=== PATIENT | female | born 1965 | race Caucasian/White ===

== ENCOUNTER → 2018-06-07 | Outpatient (CLI) | payer OTHER ==
--- NOTE | 2018-06-07 12:44 | CT ---
EXAMINATION TYPE: CT lumbar spine wo con DATE OF EXAM: 06/07/2018 COMPARISON: None HISTORY: Lumbago CT DLP: 2222.[address] of the lumbar spine was performed. Bone and soft tissue window settings are submitted as well as coronal and sagittal reconstructions. L1-L2: Normal disc space height. No disc herniation protrusion or central stenosis. No facet joint arthropathy. No evidence for foraminal encroachment. L2-L3: Normal disc space height. No disc herniation protrusion or central stenosis. No facet joint arthropathy. No evidence for foraminal encroachment. L3-L4: Normal disc space height. No disc herniation protrusion or central stenosis. No facet joint arthropathy. No evidence for foraminal encroachment. L4-L5: Moderate degenerative disc space narrowing. Circumferential disc bulge greatest posteriorly wi th partial encapsulating spur resulting in disc endplate complex. There is bilateral lateral recess s tenosis identified as well as mild bilateral foraminal encroachment. No definite central stenosis at this time. L5-S1: Severe disc space narrowing noted with vacuum disc. Circumferential disc bulge with partial en capsulating spur resulting in moderate sized disc endplate complex. Bilateral lateral recess stenosis and mild central stenosis appreciated. Bilateral foraminal encroachment noted with facet joint arthr opathy. No paraspinal masses are identified. Lumbar segments are free of fracture. IMPRESSION: 1. Degenerative disc disease at L4-5 and L5-S1 with disc endplate complex and lateral recess stenosis . Mild central stenosis at L5-S1 as discussed.
== END | disposition home or self-care (01) ==
LOC: RADCTMAIN 08:19
PROVIDERS: ATTEND Psychiatry & Neurology Neurology
DX: M48.07 Spinal stenosis, lumbosacral region (principal); M51.37 Other intervertebral disc degeneration, lumbosacral region
CPT/HCPCS: 72131

== ENCOUNTER → 2018-10-25 | Outpatient (CLI) | payer MEDICARE, OTHER ==
[2018-10-25 16:11] LABS: African American GFR (CKD) >90 (>60 ml/min/1.73 sqM); Blood Urea Nitrogen 10 mg/dL (7-17)
--- NOTE | 2018-10-25 20:38 | CT ---
EXAMINATION TYPE: CT brain wo/w con DATE OF EXAM: 10/25/2018 COMPARISON: None. HISTORY: Body tremors and memory loss CT DLP: 2117.3 mGycm Automated exposure control for dose reduction was used. CONTRAST: CT scan of the head is performed without and with IV Contrast, patient injected with 100 mL of Isovue 300. FINDINGS: Noncontrast images show no acute cranial hemorrhage or midline shift. The ventricles and sulci are w ithin normal limits in size for patient's age. Postcontrast images show no suspicious enhancing mass . There may be small arachnoid cyst or adjacent cysts in the posterior aspect posterior fossa or freddy cisterna magna. The globes are intact and the visualized sinuses are clear. IMPRESSION: Possible small posterior aspect posterior fossa arachnoid cysts or freddy cisterna magna ot herwise unremarkable study.
== END | disposition home or self-care (01) ==
LOC: RADCTMAIN 15:37
PROVIDERS: ATTEND Psychiatry & Neurology Neurology
DX: R25.1 Tremor, unspecified (principal); Z51.81 Encounter for therapeutic drug level monitoring
CPT/HCPCS: 82565; 84520; 70470; 36415; Q9967

== ENCOUNTER 2019-02-26 11:33 | Emergency (ER) | payer MEDICARE ==
[2019-02-26 11:47] VITALS: TEMP 98.1
[2019-02-26] MEDS ORDERED: ONDANSETRON 4 MG/2 ML VIAL IVP STA (12:06)
[2019-02-26 12:19] VITALS: RESP 20
--- NOTE | 2019-02-26 12:28 | ED ---
Seizure HPI - General Chief Complaint: Seizure Stated Complaint: seizures Time Seen by Provider: 02/26/19 11:54 Source: patient, family Mode of arrival: wheelchair Limitations: no limitations - History of Present Illness Initial Comments: Patient is a 53-year-old female, with multiple comorbidities, presenting to emergency Department with complaints of a seizure. Patient states she does have history of seizures and currently sees Dr. Massey for these. She did have a 72 hour EEG test performed last week and she is awaiting results. Patient states she has had 4, approximate 10 minute seizures since yesterday. Patient describes the seizures as beginning with tremors of her hand progressing to her arm and into her legs. Patient states each one lasts approximately 10 minutes or so. Patient states she even was starting to have one in the ER waiting room. Patient denies recent fever, chills, abdominal pain, chest pain, shortness of breath. Patient does admit to recent CT of the head which reveals a very small cyst that they will reexamine in one year. Patient does admit to mild nausea, no vomiting, no abdominal pain, no urinary complaints. Patient has no other complaints at this time. Upon arrival to the ER, her vital signs are stable. Patient was seen shaking her hand in triage but she was able to ambulate from wheelchair to bed without complications. - Related Data Allergies Allergy/AdvReac Type Severity Reaction Status Date / Time No Known Allergies Allergy Verified 02/26/19 11:42 Review of Systems ROS Statement: Those systems with pertinent positive or pertinent negative responses have been documented in the HPI. ROS Other: All systems not noted in ROS Statement are negative. Past Medical History Past Medical History: Diabetes Mellitus, Hyperlipidemia, Hypertension History of Any Multi-Drug Resistant Organisms: None Reported Past Surgical History: Appendectomy, Back Surgery, Hysterectomy Past Psychological History: No Psychological Hx Reported Smoking Status: Never smoker Past Alcohol Use History: None Reported Past Drug Use History: None Reported General Exam - General Exam Comments Initial Comments: GENERAL: Well-appearing, well-nourished and in no acute distress. HEAD: Atraumatic, normocephalic. EYES: Pupils equal round and reactive to light, extraocular movements intact, sclera anicteric, conjunctiva are normal. ENT: TMs normal, nares patent, oropharynx clear without exudates. Moist mucous membranes. NECK: Normal range of motion, supple without lymphadenopathy or JVD. LUNGS: Breath sounds clear to auscultation bilaterally and equal. No wheezes rales or rhonchi. HEART: Regular rate and rhythm without murmurs, rubs or gallops. ABDOMEN: Soft, nontender, normoactive bowel sounds. No guarding, no rebound. No masses appreciated. : Deferred EXTREMITIES: Normal range of motion, no pitting or edema. No clubbing or cyanosis. NEUROLOGICAL: Cranial nerves II through XII grossly intact. Normal speech, normal gait. PSYCH: Normal mood, normal affect. SKIN: Warm, Dry, normal turgor, no rashes or lesions noted. Limitations: no limitations Course Vital Signs 02/26/19 02/26/19 02/26/19 11:42 11:46 12:46 Temperature 98.1 F Pulse Rate 86 82 Respiratory 16 20 20 Rate Blood Pressure 133/73 125/85 O2 Sat by Pulse 98 Oximetry 02/26/19 02/26/19 02/26/19 13:00 14:00 14:40 Temperature Pulse Rate 87 85 83 Respiratory 20 20 20 Rate Blood Pressure 127/88 119/51 120/78 O2 Sat by Pulse 95 Oximetry Medical Decision Making - Medical Decision Making Patient is a 53-year-old female presenting with seizures today. Patient has history of seizures and currently sees Dr. Massey. She had a recent 72 hour EEG and she is awaiting the results. Vital signs are stable during stay. Lab work shows no acute abnormalities. UA is negative. I discussed these findings with the patient and her . During ER stay, patient had seizure-like activity. She was seen having tremors of her hand and legs. When I moved her right arm she was voluntarily moving her arm back in place. Patient was given a 1 of Ativan which did improve her symptoms. I feel like her symptoms are voluntarily. Patient is stable for discharge at this time. She'll follow back up with her neurologist. Return parameters were discussed with the patient and her and they both verbalized understanding. Case discussed with Dr. Ghotra. - Lab Data Result diagrams: 02/26/19 12:02/26/19 12:02 Lab Results 02/26/19 02/26/19 02/26/19 Range/Units 12:02 12: 12: WBC 6.7 (3.8-10.6) k/uL RBC 4.43 (3.80-5.40) m/uL Hgb 13.5 (11.4-16.0) gm/dL Hct 41.7 (34.0-46.0) % MCV 94.1 (80.0-100.0) fL MCH 30.5 (25.0-35.0) pg MCHC 32.5 (31.0-37.0) g/dL RDW 13.8 (11.5-15.5) % Plt Count 186 (150-450) k/uL Neutrophils % 73 % Lymphocytes % 17 % Monocytes % 6 % Eosinophils % 3 % Basophils % 0 % Neutrophils # 4.9 (1.3-7.7) k/uL Lymphocytes # 1.1 (1.0-4.8) k/uL Monocytes # 0.4 (0-1.0) k/uL Eosinophils # 0.2 (0-0.7) k/uL Basophils # 0.0 (0-0.2) k/uL PT 9.5 (9.0-12.0) sec INR 0.9 (<1.2) APTT 23.2 (22.0-30.0) sec Sodium 140 (137-145) mmol/L Potassium 4.9 (3.5-5.1) mmol/L Chloride 106 (98-107) mmol/L Carbon Dioxide 24 (22-30) mmol/L Anion Gap 10 mmol/L BUN 18 H (7-17) mg/dL Creatinine 0.76 (0.52-1.04) mg/dL Est GFR (CKD-EPI)AfAm >90 (>60 ml/min/1.73 sqM) Est GFR (CKD-EPI)NonAf 90 (>60 ml/min/1.73 sqM) Glucose 124 H (74-99) mg/dL Calcium 9.9 (8.4-10.2) mg/dL Total Bilirubin 1.0 (0.2-1.3) mg/dL AST 25 (14-36) U/L ALT 13 (4-34) U/L Alkaline Phosphatase 66 (38-126) U/L Total Protein 7.3 (6.3-8.2) g/dL Albumin 4.4 (3.5-5.0) g/dL Urine Color Urine Appearance (Clear) Urine pH (5.0-8.0) Ur Specific [place] (1.001-1.035) Urine Protein (Negative) Urine Glucose (UA) (Negative) Urine Ketones (Negative) Urine Blood (Negative) Urine Nitrite (Negative) Urine Bilirubin (Negative) Urine Urobilinogen (<2.0) mg/dL Ur Leukocyte Esterase (Negative) 02/26/19 Range/Units 13:05 WBC (3.8-10.6) k/uL RBC (3.80-5.40) m/uL Hgb (11.4-16.0) gm/dL Hct (34.0-46.0) % MCV (80.0-100.0) fL MCH (25.0-35.0) pg MCHC (31.0-37.0) g/dL RDW (11.5-15.5) % Plt Count (150-450) k/uL Neutrophils % % Lymphocytes % % Monocytes % % Eosinophils % % Basophils % % Neutrophils # (1.3-7.7) k/uL Lymphocytes # (1.0-4.8) k/uL Monocytes # (0-1.0) k/uL Eosinophils # (0-0.7) k/uL Basophils # (0-0.2) k/uL PT (9.0-12.0) sec INR (<1.2) APTT (22.0-30.0) sec Sodium (137-145) mmol/L Potassium (3.5-5.1) mmol/L Chloride (98-107) mmol/L Carbon Dioxide (22-30) mmol/L Anion Gap mmol/L BUN (7-17) mg/dL Creatinine (0.52-1.04) mg/dL Est GFR (CKD-EPI)AfAm (>60 ml/min/1.73 sqM) Est GFR (CKD-EPI)NonAf (>60 ml/min/1.73 sqM) Glucose (74-99) mg/dL Calcium (8.4-10.2) mg/dL Total Bilirubin (0.2-1.3) mg/dL AST (14-36) U/L ALT (4-34) U/L Alkaline Phosphatase (38-126) U/L Total Protein (6.3-8.2) g/dL Albumin (3.5-5.0) g/dL Urine Color Yellow Urine Appearance Clear (Clear) Urine pH 5.5 (5.0-8.0) Ur Specific [place] 1.032 (1.001-1.035) Urine Protein Trace H (Negative) Urine Glucose (UA) Negative (Negative) Urine Ketones Negative (Negative) Urine Blood Negative (Negative) Urine Nitrite Negative (Negative) Urine Bilirubin Negative (Negative) Urine Urobilinogen <2.0 (<2.0) mg/dL Ur Leukocyte Esterase Negative (Negative) Disposition Clinical Impression: Seizure-like activity Disposition: HOME SELF-CARE Condition: Stable Instructions (If sedation given, give patient instructions): Recurrent Seizures in Adults (ED) Additional Instructions: Please return to the Emergency Department if symptoms worsen or any other concerns. Follow-up with Dr. Massey Is patient prescribed a controlled substance at d/c from ED?: No Referrals: Rose Mcclure DO [Primary Care Provider] - 1-2 days
[2019-02-26 12:31] LABS: Basophils % (A) 0 %; Eosinophils # (A) 0.2 k/uL (0-0.7); Eosinophils % (A) 3 %; HCT 41.7 % (34.0-46.0); HGB 13.5 gm/dL (11.4-16.0); Lymphocytes # (A) 1.1 k/uL (1.0-4.8); Lymphocytes % (A) 17 %; MCH 30.5 pg (25.0-35.0); MCHC 32.5 g/dL (31.0-37.0); MCV 94.1 fL (80.0-100.0); Mean Platelet Volume 8.9; Monocytes # (A) 0.4 k/uL (0-1.0); Monocytes % (A) 6 %; Neutrophils # (A) 4.9 k/uL (1.3-7.7); Neutrophils % (A) 73 %; Platelet Count 186 k/uL (150-450); RBC 4.43 m/uL (3.80-5.40); RDW 13.8 % (11.5-15.5); WBC 6.7 k/uL (3.8-10.6)
[2019-02-26 12:39] LABS: ALT 13 U/L (4-34); African American GFR (CKD) >90 (>60 ml/min/1.73 sqM); Albumin 4.4 g/dL (3.5-5.0); Anion Gap 10 mmol/L; Blood Urea Nitrogen 18 mg/dL (7-17); Calcium 9.9 mg/dL (8.4-10.2); Carbon Dioxide 24 mmol/L (22-30); Chloride 106 mmol/L (98-107); Glucose 124 mg/dL (74-99); INR 0.9 (<1.2); Non-African American GFR(CKD) 90 (>60 ml/min/1.73 sqM); Partial Thromboplastin Time 23.2 sec (22.0-30.0); Prothrombin Time 9.5 sec (9.0-12.0); Sodium 140 mmol/L (137-145); Total Protein 7.3 g/dL (6.3-8.2)
[2019-02-26 12:53] LABS: AST 25 U/L (14-36); Alkaline Phosphatase 66 U/L (38-126); Potassium 4.9 mmol/L (3.5-5.1)
[2019-02-26 13:20] LABS: Appearance,Urine Clear (Clear); Bilirubin,Urine Negative (Negative); Blood,Urine Negative (Negative); Color,Urine Yellow; Glucose,Urine (UA) Negative (Negative); Ketones,Urine Negative (Negative); Leukocyte Esterase,Urine Negative (Negative); Nitrite,Urine Negative (Negative); PH, Urine 5.5 (5.0-8.0); Protein,Urine Trace (Negative); Specific Gravity,Urine 1.032 (1.001-1.035); Urobilinogen,Urine <2.0 mg/dL (<2.0)
[2019-02-26] MEDS ORDERED: LORazepam 2 MG/ML INJ IV STA (13:25)
[2019-02-26 14:41] VITALS: BP 120/78; PULSE 83
== END 2019-02-26 14:47 | disposition home or self-care (01) ==
LOC: EC 11:33
DX: R56.9 Unspecified convulsions (principal); R11.0 Nausea
CPT/HCPCS: 36415; 80053; 85025; 85610; 85730; 81003; 99284; 96374; 96375; J2060; J2405

== ENCOUNTER → 2019-10-19 | Outpatient (CLI) | payer MEDICARE, OTHER ==
--- NOTE | 2019-10-19 08:46 | CT ---
EXAMINATION TYPE: CT cervical spine wo con DATE OF EXAM: 10/19/2019 COMPARISON: NONE HISTORY: Cervicalgia per order. Neck pain causing pain and numbness or tingling into both arms for [address] DLP: 673.50 mGycm. Automated Exposure Control for Dose Reduction was Utilized. TECHNIQUE: CT scan of the cervical spine is obtained without contrast, axial images are obtained, sa gittal and coronal reformatted images are also reviewed. FINDINGS: Cervical spine is visualized in its entirety from C1 through upper thoracic levels, demonst rates slight grade 1 anterolisthesis C4 on C5 and C5 on C6 without evidence of acute fracture or disl ocation. Prevertebral soft tissue appears within normal limits. The C1-C2 articulation is within no rmal limits on the coronal images. Vertebral body heights are maintained. There is mild disc space narrowing with moderate anterior spur ring C5-C6 level. This space heights are otherwise fairly well maintained. Spinal canal is preserved. Axial images show the C2-C3 and C3-C4 level to appear within normal limits. Axial images at C4-C5 levels show right-sided uncovertebral facet degenerative changes causing asymme tric mild right-sided neural foraminal narrowing axial image 47. Axial images at the C5-C6 level show left-sided uncovertebral facet degenerative changes causing asym metric mild left-sided neural foraminal narrowing. There is left paracentral disc protrusion mildly e ffacing the anterolateral thecal sac. Axial images at the C6-C7 and the C7-T1 levels are within normal limits. IMPRESSION: Subtle spondylolisthesis and degenerative changes in the mid cervical spine greatest at C 5-C6 level as detailed above.
== END | disposition home or self-care (01) ==
LOC: RADCTMAIN 07:03
PROVIDERS: ATTEND Psychiatry & Neurology Pain Medicine
DX: M48.02 Spinal stenosis, cervical region (principal); M43.12 Spondylolisthesis, cervical region; M47.812 Spondylosis without myelopathy or radiculopathy, cervical region
CPT/HCPCS: 72125

== ENCOUNTER → 2020-01-02 | Outpatient (CLI) | payer MEDICARE, OTHER | END | disposition home or self-care (01) | LOC: LABWHC1 09:53 | PROVIDERS: ATTEND Psychiatry & Neurology Pain Medicine | DX: Z51.81 Encounter for therapeutic drug level monitoring (principal); G40.909 Epilepsy, unspecified, not intractable, without status epilepticus | CPT/HCPCS: 36415; 80175 ==

== ENCOUNTER → 2020-04-04 | Outpatient (CLI) | payer OTHER ==
--- NOTE | 2020-04-04 21:51 | CT ---
EXAMINATION TYPE: CT lumbar spine wo/w con DATE OF EXAM: 04/04/2020 COMPARISON: CT lumbar spine June 07, 2018 HISTORY: chronic low back pain CT DLP: 4601.3 mGycm Automated exposure control for dose reduction was used. CONTRAST: CT scan of the lumbar is performed without and with IV Contrast, patient injected with 100 mL of Isov ue 300. Enhanced CT of the lumbar spine was performed. Bone and soft tissue window settings are submitted as well as coronal and sagittal reconstructions. There are 5 lumbar-type vertebra redemonstrated. Alignment stable with slight grade 1 retrolisthesis L4 on L5 and L5 on S1. Persistent vacuum disc phenomenon and moderate disc space narrowing L5-S1 leve l. Vertebral body heights and disc space heights otherwise maintained. Spinal stimulator device enter ing spinal canal posteriorly at T12-L1 level redemonstrated ascending to the mid thoracic spine only partially imaged on this study. Axial images show T12-L1, L1-L2, and L2-L3 level all to remain within normal limits. Axial images at L3-L4 level mild to moderate broad disc bulge and mild facet degenerative changes dominick aterally. There is mild effacement of the anterior thecal sac and [id number] bilateral neural f oraminal narrowing. Axial images at the L4-L5 level shows mild marked facet degenerative changes bilaterally. There is po sterior spur disc complex mildly effacing the anterior thecal sac. There is mild to moderate bilatera l neural foraminal narrowing. Axial images at L5-S1 level shows moderate facet degenerative changes bilaterally. There is spondylol isthesis with posterior spur disc complex effacing the anterior thecal sac greatest right paracentral level axial image 80 similar to prior. There is moderate to severe bilateral neural foraminal narrow ing. No suspicious postcontrast enhancement is seen. There is fairly severe diffuse fatty-replaced atrophy of the pancreas redemonstrated. Visualized liver remains low dense consistent with diffuse fatty inf iltration. IMPRESSION: Multilevel degenerative changes mid to lower lumbar spine greatest at L5-S1 level without significant change or progression from prior MRI.
== END | disposition home or self-care (01) ==
LOC: RADCTMAIN 15:14
PROVIDERS: ATTEND Psychiatry & Neurology Pain Medicine
DX: M47.817 Spondylosis without myelopathy or radiculopathy, lumbosacral region (principal); Z98.890 Other specified postprocedural states
CPT/HCPCS: 72133

== ENCOUNTER → 2020-04-04 | Outpatient (CLI) | payer MEDICARE, OTHER ==
[2020-04-04 16:02] LABS: African American GFR (CKD) >90 (>60 ml/min/1.73 sqM); Blood Urea Nitrogen 17 mg/dL (7-17); Non-African American GFR(CKD) >90 (>60 ml/min/1.73 sqM)
--- NOTE | 2020-04-04 21:36 | CT ---
EXAMINATION TYPE: CT brain wo/w con DATE OF EXAM: 04/04/2020 COMPARISON: CT brain October 25, 2018 HISTORY: dizziness, visual changes, memory loss CT DLP: 2059.8 mGycm Automated exposure control for dose reduction was used. CONTRAST: CT scan of the head is performed without and with IV Contrast, patient injected with 100 mL of Isovue 300. FINDINGS: There is no acute intracranial hemorrhage or midline shift identified. Ventricles and sulci stable an d within normal limits in size. [place]-white matter differentiation fairly well maintained. Postcontras t images show no suspicious enhancing masses. Prominent CSF posterior aspect posterior fossa suspicio us for small arachnoid cyst right larger than left redemonstrated. The globes are intact and the visu alized sinuses are clear. IMPRESSION: Probable small posterior aspect posterior fossa arachnoid cysts or magna cisterna magna r edemonstrated. No significant from prior study.
== END | disposition home or self-care (01) ==
LOC: RADCTMAIN 14:59
PROVIDERS: ATTEND Psychiatry & Neurology Neurology
DX: R41.3 Other amnesia (principal); R56.9 Unspecified convulsions; Z98.890 Other specified postprocedural states; Z51.81 Encounter for therapeutic drug level monitoring
CPT/HCPCS: 82565; 84520; 70470; 36415; Q9967

== ENCOUNTER → 2020-06-08 | Outpatient (CLI) | payer MEDICARE, OTHER | END | disposition home or self-care (01) | LOC: LABWHC1 14:56 | PROVIDERS: ATTEND Psychiatry & Neurology Pain Medicine | DX: Z51.81 Encounter for therapeutic drug level monitoring (principal) | CPT/HCPCS: 36415; 80175 ==

== ENCOUNTER 2021-03-21 16:38 | Observation (INO) | payer MEDICARE, OTHER ==
--- NOTE | 2021-03-21 17:14 | ED ---
General Adult HPI - General Chief complaint: Chest Pain Stated complaint: Chest pressure Time Seen by Provider: 03/21/21 16:58 Source: patient Mode of arrival: ambulatory Limitations: no limitations - History of Present Illness Initial comments: Dictation was produced using [employer] dictation software. please excuse any grammatical, word or spelling errors. Chief Complaint: Patient is 55-year-old female presents to the emergency [facility] for chest pain History of Present Illness: 55-year-old female presents to the emergency [facility] for chest pain. Patient states that yesterday she was seen by her primary care physician and had an abnormal EKG. She was instructed to go directly to the emergency department. Yesterday she went to [facility] or she was evaluated. They performed EKG and blood work and everything came back normal. Date recommended that she be admitted for observation and likely stress test however she refused and left AGAINST MEDICAL ADVICE. Patient states she presents to our emergency department for further care. She states that she still having symptoms. A mild ache that radiates down both of her extremities. Associated with diaphoresis and nausea. Patient states that she has family his tory of heart attacks. She states her brother had a LAD occlusion in his 40s. Patient denies any heart history and anybody else in her family. Patient has a fever. She states that she does have some mild exertional dyspnea. She is history of diabetes. Nontobacco user. The ROS documented in this emergency department record has been reviewed and confirmed by me. Those systems with pertinent positive or negative responses have been documented in the HPI. All other systems are other negative and/or noncontributory. PHYSICAL EXAM: General Impression: Alert and oriented x3, not in acute distress HEENT: Normocephalic atraumatic, extra-ocular movements intact, pupils equal and reactive to light bilaterally, mucous membranes moist. Cardiovascular: Heart regular rate and rhythm Chest: Able to complete full sentences, no retractions, no tachypnea Abdomen: abdomen soft, non-tender, non-distended, no organomegaly Musculoskeletal: Pulses present and equal in all extremities, no peripheral edema Motor: no focal deficits noted Neurological: CN II-XII grossly intact, no focal motor or sensory deficits noted Skin: Intact with no visualized rashes Psych: Normal affect and mood ED course: 55-year-old well-appearing female presents to the emergency department for chest pain. All signs upon arrival are within acceptable limits. EKG does not show any signs of infarction. There is no old EKG for comparison but there is T-wave inversions in the septal lateral leads. Laboratory evaluation obtained. CBC, coag panel, metabolic is unremarkable. Troponin is negative. Patient reverted bedside I&D stable medical condition. Patient be admitted for atypical chest pain with typical features. Case discussed with sounds Physician group who was Willing to Accept Patients Care for Observation Admission. EKG interpretation: Ventricular rate a 84, normal sinus rhythm,. Interval and 60, QRS 80, QTC 425. No SD prolongation, no QTC prolongation, T-wave inversions in septal lateral leads. Overall, this EKG is unremarkable - Related Data Home Medications Medication Instructions Recorded Confirmed Albuterol Inhaler [Ventolin Hfa 2 puff INHALATION RT-QID PRN 03/21/21 03/21/21 Inhaler] Dapagliflozin Propanediol [Farxiga] 5 mg PO DAILY 03/21/21 03/21/21 Gabapentin 300 mg PO BID 03/21/21 03/21/21 HYDROcodone/APAP 10-325MG [[place] 1 tab PO BID 03/21/21 03/21/21 10-325] Losartan Potassium 50 mg PO DAILY 03/21/21 03/21/21 Lovastatin [Mevacor] 10 mg PO DAILY 03/21/21 03/21/21 Morphine Sulfate ER [Ms Contin] 30 mg PO BID 03/21/21 03/21/21 Naloxegol Oxalate [Movantik] 25 mg PO DAILY 03/21/21 03/21/21 Omeprazole 20 mg PO BID 03/21/21 03/21/21 Oxybutynin Chloride [Oxybutynin 10 mg PO BID 03/21/21 03/21/21 Chloride ER] Venlafaxine HCl ER [Effexor Xr] 75 mg PO DAILY 03/21/21 03/21/21 Venlafaxine HCl ER [Effexor Xr] 150 mg PO DAILY 03/21/21 03/21/21 clonazePAM [KlonoPIN] 0.5 mg PO BID 03/21/21 03/21/21 glipiZIDE [Glucotrol] 5 mg PO DAILY 03/21/21 03/21/21 metFORMIN HCL [Glucophage] 1,000 mg PO BID 03/21/21 03/21/21 Allergies Allergy/AdvReac Type Severity Reaction Status Date / Time No Known Allergies Allergy Verified 03/21/21 18:08 Review of Systems ROS Statement: Those systems with pertinent positive or pertinent negative responses have been documented in the HPI. ROS Other: All systems not noted in ROS Statement are negative. Past Medical History Past Medical History: Diabetes Mellitus, Hyperlipidemia, Hypertension, Seizure Disorder History of Any Multi-Drug Resistant Organisms: None Reported Past Surgical History: Appendectomy, Back Surgery, Hysterectomy Past Psychological History: No Psychological Hx Reported Smoking Status: Never smoker Past Alcohol Use History: None Reported Past Drug Use History: None Reported General Exam Limitations: no limitations Course Vital Signs 03/21/21 03/21/21 16:41 18:03 Temperature 98.2 F Pulse Rate 95 84 Respiratory 16 18 Rate Blood Pressure 154/92 O2 Sat by Pulse 97 Oximetry Medical Decision Making - Lab Data Result diagrams: 03/21/21 17:20 03/21/21 17:20 Lab Results 03/21/21 03/21/21 03/21/21 Range/Units 17:20 17:20 17:20 WBC 5.3 (3.8-10.6) k/uL RBC 4.63 (3.80-5.40) m/uL Hgb 14.0 (11.4-16.0) gm/dL Hct 43.7 (34.0-46.0) % MCV 94.2 (80.0-100.0) fL MCH 30.2 (25.0-35.0) pg MCHC 32.0 (31.0-37.0) g/dL RDW 14.6 (11.5-15.5) % Plt Count 196 (150-450) k/uL MPV 9.2 Neutrophils % 65 % Lymphocytes % 23 % Monocytes % 5 % Eosinophils % 5 % Basophils % 1 % Neutrophils # 3.5 (1.3-7.7) k/uL Lymphocytes # 1.2 (1.0-4.8) k/uL Monocytes # 0.3 (0-1.0) k/uL Eosinophils # 0.3 (0-0.7) k/uL Basophils # 0.0 (0-0.2) k/uL PT 9.6 (9.0-12.0) sec INR 0.9 (<1.2) APTT 22.9 (22.0-30.0) sec Sodium 136 L (137-145) mmol/L Potassium 4.1 (3.5-5.1) mmol/L Chloride 103 (98-107) mmol/L Carbon Dioxide 22 (22-30) mmol/L Anion Gap 11 mmol/L BUN 7 (7-17) mg/dL Creatinine 0.53 (0.52-1.04) mg/dL Est GFR (CKD-EPI)AfAm >90 (>60 ml/min/1.73 sqM) Est GFR (CKD-EPI)NonAf >90 (>60 ml/min/1.73 sqM) Glucose 228 H (74-99) mg/dL Calcium 9.1 (8.4-10.2) mg/dL Troponin I (0.000-0.034) ng/mL 03/21/21 Range/Units 17:20 WBC (3.8-10.6) k/uL RBC (3.80-5.40) m/uL Hgb (11.4-16.0) gm/dL Hct (34.0-46.0) % MCV (80.0-100.0) fL MCH (25.0-35.0) pg MCHC (31.0-37.0) g/dL RDW (11.5-15.5) % Plt Count (150-450) k/uL MPV Neutrophils % % Lymphocytes % % Monocytes % % Eosinophils % % Basophils % % Neutrophils # (1.3-7.7) k/uL Lymphocytes # (1.0-4.8) k/uL Monocytes # (0-1.0) k/uL Eosinophils # (0-0.7) k/uL Basophils # (0-0.2) k/uL PT (9.0-12.0) sec INR (<1.2) APTT (22.0-30.0) sec Sodium (137-145) mmol/L Potassium (3.5-5.1) mmol/L Chloride (98-107) mmol/L Carbon Dioxide (22-30) mmol/L Anion Gap mmol/L BUN (7-17) mg/dL Creatinine (0.52-1.04) mg/dL Est GFR (CKD-EPI)AfAm (>60 ml/min/1.73 sqM) Est GFR (CKD-EPI)NonAf (>60 ml/min/1.73 sqM) Glucose (74-99) mg/dL Calcium (8.4-10.2) mg/dL Troponin I <0.012 (0.000-0.034) ng/mL Disposition Clinical Impression: Chest pain Disposition: ADMITTED IP TO THIS HOSP Condition: Fair Referrals: Rose Mcclure DO [Primary Care Provider] - 1-2 days
[2021-03-21 17:29] LABS: Basophils % (A) 1 %; Eosinophils # (A) 0.3 k/uL (0-0.7); Eosinophils % (A) 5 %; HCT 43.7 % (34.0-46.0); Lymphocytes # (A) 1.2 k/uL (1.0-4.8); Lymphocytes % (A) 23 %; MCH 30.2 pg (25.0-35.0); MCV 94.2 fL (80.0-100.0); Mean Platelet Volume 9.2; Monocytes # (A) 0.3 k/uL (0-1.0); Monocytes % (A) 5 %; Neutrophils # (A) 3.5 k/uL (1.3-7.7); Neutrophils % (A) 65 %; Platelet Count 196 k/uL (150-450); RBC 4.63 m/uL (3.80-5.40); RDW 14.6 % (11.5-15.5); WBC 5.3 k/uL (3.8-10.6)
[2021-03-21 17:39] LABS: INR 0.9 (<1.2); Partial Thromboplastin Time 22.9 sec (22.0-30.0); Prothrombin Time 9.6 sec (9.0-12.0)
[2021-03-21 17:42] LABS: African American GFR (CKD) >90 (>60 ml/min/1.73 sqM); Anion Gap 11 mmol/L; Blood Urea Nitrogen 7 mg/dL (7-17); Calcium 9.1 mg/dL (8.4-10.2); Carbon Dioxide 22 mmol/L (22-30); Chloride 103 mmol/L (98-107); Glucose 228 mg/dL (74-99); Non-African American GFR(CKD) >90 (>60 ml/min/1.73 sqM); Potassium 4.1 mmol/L (3.5-5.1); Sodium 136 mmol/L (137-145)
[2021-03-21] MEDS ORDERED: ASPIRIN 81 MG PO STA (18:17)
[2021-03-21] MEDS ORDERED: NITROGLYCERIN SL TABS 0.4 MG TAB SUBLINGUAL PRN (18:17)
[2021-03-21 23:05] LABS: Glucose,Whole Blood 221 mg/dL (75-99)
[2021-03-21] MEDS ORDERED: HEPARIN SODIUM 1,000 UN/ML (10ML VL) IV ONE (23:30)
[2021-03-21] MEDS ORDERED: HEPARIN SODIUM 1,000 UN/ML (10ML VL) IV PRN (23:30)
--- NOTE | 2021-03-22 01:02 | P.HPIM ---
History of Present Illness H&P Date: 03/21/21 The patient is a 55-year-old female with a PMH of type II DM, hypertension, hyperlipidemia who presents to the emergency room with complaints of chest discomfort. The patient reports that her pain started roughly a week ago, and has gradually progressed. She notes that it is substernal, pressure-like, worse with exertion, 8-9 out of 10 at maximal intensity, 4 out of 10 at rest, radiating to both arms, with associated shortness of breath, nausea, and dizziness. She reports that the pain is alleviated with rest. She reports going to her memory care physician's office earlier today where an EKG was performed and was abnormal and the patient was directed to come to the emergency room. She reports that her pain continue to 4 out of 10 during the interview. She denied cough, fever, chills, abdominal pain, diarrhea, headaches, weakness, numbness, tingling. EKG in the emergency room revealed normal sinus rhythm at 84 bpm with T-wave flattening and inversion in all precordial leads. Laboratory evaluation was remarkable for glucose 228, and troponin less than 0.012. Review of systems: Pertinent positives and negatives as discussed in HPI, a complete review of systems was performed and all other systems are negative. Physical examination: General: non toxic, no distress, appears at stated age, morbidly obese Derm: no unusual rashes/lesions no unusual ecchymoses, warm, dry Head: atraumatic, normocephalic, symmetric Eyes: EOMI, no lid lag, anicteric sclera, pupils equal round reactive to light ENT: Nose and ears atraumatic, no thrush, no pharyngeal erythema Neck: No thyromegaly, no cervical lymphadenopathy, trachea midline, supple Mouth: no lip lesion, mucus membranes moist Cardiovascular: S1S2 reg, no murmur, positive posterior tibial pulse bilateral, no edema, capillary refill less than 2 seconds Lungs: CTA bilateral, no rhonchi, no rales , no accessory muscle use Abdominal: soft, nontender to palpation, no guarding, no appreciable organomegaly, normal bowel sounds Ext: no gross muscle atrophy, muscle strength 5 out of 5 in all 4 extremities grossly, no contractures, Neuro: CN II-XI grossly intact, light touch intact all 4 extremities, finger to nose within normal limits, Psych: Alert, oriented, appropriate affect Assessment/plan Unstable angina -Start heparin infusion -Continue with aspirin -Nitroglycerin when necessary -Cardiology consulted -Cardiac monitoring -Trend troponin Chronic conditions: Type II DM, hypertension, hyperlipidemia -Check A1c -Insulin sliding scale and blood glucose monitoring -Continue the remaining home medications DVT prophylaxis -Heparin infusion The patient is admitted with an anticipated less than 2 midnight stay for evaluation of unstable angina. CODE STATUS: Full Code Discussed with: Patient Anticipated discharge date: in am Anticipated discharge place: Home Past Medical History Past Medical History: Diabetes Mellitus, Hyperlipidemia, Hypertension, Seizure Disorder History of Any Multi-Drug Resistant Organisms: None Reported Past Surgical History: Appendectomy, Back Surgery, Hysterectomy Past Psychological History: No Psychological Hx Reported Smoking Status: Never smoker Past Alcohol Use History: None Reported Past Drug Use History: None Reported - Past Family History Father Additional Family Medical History / Comment(s): alzheimers Mother Family Medical History: Unable to Obtain Brother(s) Family Medical History: Diabetes Mellitus Additional Family Medical History / Comment(s): maker [place] Sister(s) Family Medical History: Thyroid Disorder Medications and Allergies Home Medications Medication Instructions Recorded Confirmed Type Albuterol Inhaler [Ventolin Hfa 2 puff INHALATION RT-QID PRN 03/21/21 03/21/21 History Inhaler] Dapagliflozin Propanediol [Farxiga] 5 mg PO DAILY 03/21/21 03/21/21 History Gabapentin 300 mg PO BID 03/21/21 03/21/21 History HYDROcodone/APAP 10-325MG [[place] 1 tab PO BID 03/21/21 03/21/21 History 10-325] Losartan Potassium 50 mg PO DAILY 03/21/21 03/21/21 History Lovastatin [Mevacor] 10 mg PO DAILY 03/21/21 03/21/21 History Morphine Sulfate ER [Ms Contin] 30 mg PO BID 03/21/21 03/21/21 History Naloxegol Oxalate [Movantik] 25 mg PO DAILY 03/21/21 03/21/21 History Omeprazole 20 mg PO BID 03/21/21 03/21/21 History Oxybutynin Chloride [Oxybutynin 10 mg PO BID 03/21/21 03/21/21 History Chloride ER] Venlafaxine HCl ER [Effexor Xr] 75 mg PO DAILY 03/21/21 03/21/21 History Venlafaxine HCl ER [Effexor Xr] 150 mg PO DAILY 03/21/21 03/21/21 History clonazePAM [KlonoPIN] 0.5 mg PO BID 03/21/21 03/21/21 History glipiZIDE [Glucotrol] 5 mg PO DAILY 03/21/21 03/21/21 History metFORMIN HCL [Glucophage] 1,000 mg PO BID 03/21/21 03/21/21 History Allergies Allergy/AdvReac Type Severity Reaction Status Date / Time No Known Allergies Allergy Verified 03/21/21 18:08 Physical Exam Vitals: Vital Signs Temp Pulse Resp BP Pulse Ox 03/21/21 18:32 81 18 136/72 03/21/21 18:03 84 18 03/21/21 16:41 98.2 F 95 16 154/92 97 Intake and Output 03/21/21 03/21/21 03/21/21 06:59 14:59 22:59 Other: Weight 127.913 kg Results CBC & Chem 7: 03/21/21 17:20 03/21/21 17:20 Labs: Abnormal Lab Results - Last 24 Hours (Table) 03/21/21 Range/Units 17:20 Sodium 136 L (137-145) mmol/L Glucose 228 H (74-99) mg/dL
[2021-03-22] MEDS ORDERED: HEPARIN SOD,PORK IN 0.45% NACL 25,000 UNIT in 0.45% NACL 1 250ML.BAG IV SCH (01:30)
[2021-03-22 02:42] LABS: Basophils % (A) 1 %; Eosinophils # (A) 0.2 k/uL (0-0.7); Eosinophils % (A) 4 %; HCT 41.9 % (34.0-46.0); HGB 13.1 gm/dL (11.4-16.0); Lymphocytes # (A) 1.4 k/uL (1.0-4.8); Lymphocytes % (A) 25 %; MCH 29.8 pg (25.0-35.0); MCHC 31.3 g/dL (31.0-37.0); Mean Platelet Volume 9.2; Monocytes # (A) 0.3 k/uL (0-1.0); Monocytes % (A) 5 %; Neutrophils # (A) 3.4 k/uL (1.3-7.7); Neutrophils % (A) 62 %; Platelet Count 182 k/uL (150-450); RBC 4.41 m/uL (3.80-5.40); RDW 14.6 % (11.5-15.5); WBC 5.4 k/uL (3.8-10.6)
[2021-03-22 03:07] LABS: INR 0.9 (<1.2); Partial Thromboplastin Time 22.4 sec (22.0-30.0); Prothrombin Time 9.9 sec (9.0-12.0)
[2021-03-22 07:25] LABS: Glucose,Whole Blood 229 mg/dL (75-99)
[2021-03-22 07:41] VITALS: RESP 17
[2021-03-22 08:50] LABS: Prothrombin Time 10.4 sec (9.0-12.0)
[2021-03-22] MEDS: INSULIN ASPART (NovoLOG) 100 UNIT/ML VIAL SQ SCH ×2 (08:54→13:34)
[2021-03-22] MEDS ORDERED: LOSARTAN 50 MG TAB PO SCH (09:00)
[2021-03-22] MEDS ORDERED: ASPIRIN 325 MG TAB PO SCH (09:00)
[2021-03-22] MEDS ORDERED: OXYBUTYNIN 10 MG TAB.ER.24 PO SCH (09:00)
[2021-03-22] MEDS ORDERED: GABAPENTIN 300 MG CAP PO SCH (09:00)
[2021-03-22] MEDS ORDERED: VENLAFAXINE HCL ER 75 MG CAP PO SCH (09:00)
[2021-03-22] MEDS ORDERED: DOBUTamine DRIP for NUC MED 500 MG in DEXTROSE/WATER 1 250ML.BAG IV PRN (09:08)
[2021-03-22] MEDS ORDERED: DOBUTamine DRIP for NUC MED 500 MG/250 ML BAG IV ONE (11:00)
[2021-03-22 11:03] LABS: Basophils # (A) 0.04 X 10*3/uL (0.00-0.10); Basophils % (A) 0.8 %; Eosinophils % (A) 5.7 %; HCT 40.6 % (37.2-46.3); HGB 12.3 g/dL (12.0-15.0); Lymphocytes # (A) 1.36 X 10*3/uL (0.90-5.00); Lymphocytes % (A) 25.7 %; MCH 28.5 pg (27.0-32.0); MCHC 30.3 g/dL (32.0-37.0); MCV 94.2 fL (80.0-97.0); Mean Platelet Volume 11.6 fL (9.5-12.2); Monocytes # (A) 0.53 X 10*3/uL (0.20-1.00); Neutrophils # (A) 3.05 X 10*3/uL (1.80-7.70); Neutrophils % (A) 57.4 %; Platelet Count 163 X 10*3/uL (140-440); RBC 4.31 X 10*6/uL (4.10-5.20); RDW 14.3 % (11.5-14.5)
--- NOTE | 2021-03-22 12:31 | ECHOF ---
Referral Reason:Lv function, chest pain MEASUREMENTS -------- HEIGHT: 157.5 cm WEIGHT: 127.9 kg BP: IVSd: 1.1 cm (0.6 - 1.1) LVIDd: 4.2 cm (3.9 - 5.3) LVPWd: 1.1 cm (0.6 - 1.1) IVSs: 1.8 cm LVIDs: 2.9 cm LVPWs: 1.7 cm LA Diam: 3.0 cm (2.7 - 3.8) Ao Diam: 3.3 cm (2.0 - 3.7) AV Cusp: 2.2 cm (1.5 - 2.6) MV E Ramon: 0.47 m/s MV DecT: 280 ms MV A Ramon: 0.52 m/s MV E/A Ratio: 0.91 FINDINGS -------- Sinus rhythm. This was a technically adequate study. The left ventricular size is normal. There is borderline concentric left ventricular hypertrophy. Overall left ventricular systolic function is normal with, an EF between 55 - 60 %. The left atrium is normal in size. The right atrium is normal in size. Interatrial and interventricular septum intact. The aortic valve is trileaflet, and appears structurally normal. No aortic stenosis or regurgitation. The mitral valve is normal. The tricuspid valve appears structurally normal. The pulmonic valve is normal. The aortic root size is normal. IVC Not well visulized. There is no pericardial effusion. CONCLUSIONS -------- 1. The left ventricular size is normal. 2. There is borderline concentric left ventricular hypertrophy. 3. Overall left ventricular systolic function is normal with, an EF between 55 - 60 %. 4. The aortic valve is trileaflet, and appears structurally normal. No aortic stenosis or regurgitati on. 5. There is no pericardial effusion. ADMINISTRATIVE FELLOW: Kelli Faye RDCS
[2021-03-22 12:41] LABS: Glucose,Whole Blood 168 mg/dL (75-99)
--- NOTE | 2021-03-22 12:47 | CONS ---
CONSULTATION HISTORY OF PRESENT ILLNESS: Elisa Small is a lady who is 55 years of age. She has history of type 2 diabetes, hypertension, hyperlipidemia, and obesity. She has moderate risk factor profile for CAD. She did not have any stress test. She described nondescript pressure in the chest almost musculoskeletal in type, but persistent and she went to [facility] yesterday after having had the pain the day before. She was kept for 8 hours. Her workup was negative. She was advised to stay overnight and have a stress test, but she refused and left there. She comes in today tells me that she has family history of CAD. Her discomfort in the chest is almost musculoskeletal, sometimes reproducible, but she also has a different kind of deep discomfort that comes on randomly and sometimes with activity. She is relatively asymptomatic at the time of my evaluation. Her troponins are normal. EKG does not reveal any new findings. There is evidence of precordial T-wave inversion and this could be a nonspecific finding, but in the setting of chest discomfort and EKG changes, I feel we should do a stress test. I will perform a dobutamine echo today and based on this, will make further recommendations. PAST MEDICAL HISTORY: 1. Type 2 diabetes. 2. Hypertension. 3. Hyperlipidemia. 4. History of seizure disorder. 5. History of obesity. PAST SURGICAL HISTORY: Status post back surgery, hysterectomy and appendectomy. ALLERGIES: None. MEDICATIONS: Include glipizide, metformin, she also takes lovastatin, losartan, gabapentin, Farxiga and also some pain medications. PHYSICAL EXAMINATION: On examination, blood pressure is 140/80, pulse rate is 78 per minute regular. HEENT unremarkable. Fundus was not examined by me. Neck is supple. No JVD. I do not hear a carotid bruit. Heart: Heart exam reveals S1, S2 heard normally. No significant rub, murmur or gallop. Lungs are clear. Abdomen is soft, nontender. Lower extremities reveal bilateral 1+ edema diminished pulses. Central nervous system grossly within normal limits. EKG revealed sinus mechanism, nonspecific ST changes with precordial T-wave inversion. Repeat EKG revealed slightly more prominent precordial T-wave inversion. LAB DATA: Revealed unremarkable troponins. IMPRESSION: 1. Atypical chest pain. 2. Diabetes. 3. Hypertension. 4. Hyperlipidemia. 5. Abnormal EKG. RECOMMENDATIONS: I am recommending a dobutamine echo and echocardiogram. Based on these findings, we will make further recommendations. If these tests are normal, she can be discharged. Discussed my thoughts in detail with the patient. Thank you very much for the consult. SARTHAK / TUAN: [id number] /
--- NOTE | 2021-03-22 13:22 | P.DS ---
<Amol Stern - Last Filed: 03/22/21 13:24> Providers Expected date of discharge: 03/22/21 Hospital Course: Discharge Diagnosis: Atypical chest pain, acute coronary event ruled out Type 2 diabetes mellitus Hypertension Hyperlipidemia Morbid obesity with BMI of 51.6 kg/m. Hospital Course: The patient is a 55-year-old female with a past medical history of type II [id number] diabetes mellitus, hypertension, hyperlipidemia, and obesity. She presented to the emergency department with a chief complaint of chest discomfort. Patient reports she has been experiencing intermittent chest discomfort with activity waxing and waning over the past 2 weeks. She describes this as a "dull ache". She was seen and fully evaluated in the emergency department. EKG revealed normal sinus rhythm at 84 bpm with T-wave flattening and inversion in all precordial leads. Laboratory evaluation was remarkable for glucose 228, and troponin less than 0.012 3 draws. She was admitted under our services with consultation to cardiology. She underwent an echocardiogram which revealed a normal EF between 55 and 60% and no significant valvular abnormalities. She underwent a dobutamine stress test. Cardiology reports dobutamine stress test was negative and recommending patient follow-up in their office in 2 weeks. Patient has had resolution of chest pain. Psychiatry was initially consulted as patient reports increased depression and anxiety dealing with stressors at home however, patient denying having any suicidal or homicidal ideations and reports she follows with a therapist weekly and would prefer to discuss increased stress in home with them. Patient is medically stable for discharge at this time. Recommending patient to follow-up with her therapist as she reported, PCP, and wrapper hand. Physical examination General: Morbidly obese, non toxic, no distress, appears at stated age Derm: warm, dry Head: atraumatic, normocephalic, symmetric Eyes: EOMI, no lid lag, anicteric sclera Mouth: no lip lesion, mucus membranes moist Cardiovascular: S1S2 reg, no murmur, positive posterior tibial pulse bilateral, Lungs: CTA bilateral, no rhonchi, no rales , no accessory muscle use Abdominal: soft, nontender to palpation, no guarding, no appreciable organomegaly Ext: no gross muscle atrophy, 1+ edema, no contractures Neuro: CN II-XI grossly intact, no focal neuro deficits Psych: Alert, oriented, appropriate affect A total of 45 minutes of time were spent preparing this complex discharge summary. Patient Condition at Discharge: Stable Plan - Discharge Summary Discharge Rx Participant: No New Discharge Prescriptions: New traZODone HCL [Desyrel] 50 mg PO HS PRN #10 tab PRN Reason: Insomnia [place] Carbonate 150 mg PO BID 10 Days #20 cap Continue Venlafaxine HCl ER [Effexor XR] 75 mg PO DAILY Venlafaxine HCl ER [Effexor XR] 150 mg PO DAILY Losartan Potassium 50 mg PO DAILY Omeprazole 20 mg PO BID Naloxegol Oxalate [Movantik] 25 mg PO DAILY Morphine Sulfate ER [Ms Contin] 30 mg PO BID Lovastatin [Mevacor] 10 mg PO DAILY Gabapentin 300 mg PO BID clonazePAM [KlonoPIN] 0.5 mg PO BID Dapagliflozin Propanediol [Farxiga] 5 mg PO DAILY Albuterol Inhaler [Ventolin Hfa Inhaler] 2 puff INHALATION RT-QID PRN PRN Reason: Shortness Of Breath Oxybutynin Chloride [Oxybutynin Chloride ER] 10 mg PO BID metFORMIN HCL [Glucophage] 1,000 mg PO BID glipiZIDE [Glucotrol] 5 mg PO DAILY HYDROcodone/APAP 10-325MG [[place] 10-325] 1 tab PO BID Discharge Medication List Albuterol Inhaler [Ventolin Hfa Inhaler] 2 puff INHALATION RT-QID PRN 03/21/21 [History] Dapagliflozin Propanediol [Farxiga] 5 mg PO DAILY 03/21/21 [History] Gabapentin 300 mg PO BID 03/21/21 [History] HYDROcodone/APAP 10-325MG [[place] 10-325] 1 tab PO BID 03/21/21 [History] Losartan Potassium 50 mg PO DAILY 03/21/21 [History] Lovastatin [Mevacor] 10 mg PO DAILY 03/21/21 [History] Morphine Sulfate ER [Ms Contin] 30 mg PO BID 03/21/21 [History] Naloxegol Oxalate [Movantik] 25 mg PO DAILY 03/21/21 [History] Omeprazole 20 mg PO BID 03/21/21 [History] Oxybutynin Chloride [Oxybutynin Chloride ER] 10 mg PO BID 03/21/21 [History] Venlafaxine HCl ER [Effexor XR] 75 mg PO DAILY 03/21/21 [History] Venlafaxine HCl ER [Effexor XR] 150 mg PO DAILY 03/21/21 [History] clonazePAM [KlonoPIN] 0.5 mg PO BID 03/21/21 [History] glipiZIDE [Glucotrol] 5 mg PO DAILY 03/21/21 [History] metFORMIN HCL [Glucophage] 1,000 mg PO BID 03/21/21 [History] [place] Carbonate 150 mg PO BID 10 Days #20 cap 03/22/21 [Rx] traZODone HCL [Desyrel] 50 mg PO HS PRN #10 tab 03/22/21 [Rx] Follow up Appointment(s)/Referral(s): Feroz Hodges MD [STAFF PHYSICIAN] - 1 Week (will call to schedule appointment) Rose Mcclure DO [Primary Care Provider] - 1-2 days Ambulatory/Diagnostic Orders: Miscellaneous Lab Order [LAB.AMB] Time Frame: 3 Days, Location: None Selected Patient Instructions/Handouts: Chest Pain (DC) Activity/Diet/Wound Care/Special Instructions: Activity: As tolerated. Take breaks as needed. Diet: Heart healthy and carb consistent diet. Avoid salts, or foods with hidden salts such as canned or boxed foods and frozen dinners. Extra salt makes your heart work harder and traps the fluid in your body for longer. Special Instructions: Take all of your medications as directed and remember to keep all of your doctor's appointments and follow-up as needed. Thank you for allowing us to participate in your care, it was truly a pleasure having you for our patient!!! You have been started on new medications by our psychiatrist, Dr. Morelos. These medications are [place] and Trazadone. It is of highest importance for you to follow up with your PCP and therapist closely. You will need close monitoring while on these medications and will need lab draws to monitor therapeutic levels of lithium. Please follow up in one week with your PCP to have these levels drawn and for close monitoring of the effects of these medications. Discharge Disposition: HOME SELF-CARE <Jamia Sanders - Last Filed: 03/22/21 15:34> Providers Date of admission: 03/21/21 18:17 Attending physician: Jamia Sanders DO Consults: 03/22/21 01:53 Consult Physician Routine Consulting Provider: Westley Walls Consult Reason/Comments: depression Do you want consulting provider notified?: Yes, Notify in am Primary care physician: Rose Mcclure DO Hospital Course: Amol Stern NP rendered care for this patient independently, reviewed the findings and plan as documented in the note above. I did not physically speak with or examine the patient on this date.
[2021-03-22] MEDS ORDERED: VENLAFAXINE HCL ER 150 MG CAP PO STA (13:42)
[2021-03-22] MEDS ORDERED: LITHIUM CARBONATE 150 MG CAP PO SCH (13:45)
[2021-03-22 13:57] VITALS: BP 146/87; PULSE 96; TEMP 98.1
[2021-03-22] MEDS ORDERED: clonazePAM 0.5 MG TAB PO PRN (14:01)
--- NOTE | 2021-03-22 14:01 | P.CN ---
Psychiatric Consult - . Consult date: 03/22/21 Consult:: 03/22/21 13:15 IDENTIFYING DATA: This patient is a 55-year-old female, currently , lives with her in a house has 2 kids living with them. Unemployed. REASON FOR REFERRAL: Psychiatry was consulted for "depression" HISTORY OF PRESENT ILLNESS: The patient presented to the hospital on 03/21 for chest pain. Apparently patient had a EKG done at her PCPs office which was normal however came to the emergency room. She apparently also was evaluated at [facility] recently and discharged or left AGAINST MEDICAL ADVICE. Patient has a reported strong history of cardiac disease. Patient's troponin were negative 3. Cardiology on board and treating patient for atypical chest pain. Patients nurse claims that patient was endorsing depression and a history of suicidal thoughts and also anxiety. Patient was seen in the room after finishing her lunch. She claims that she came into the hospital for chest pain and claims that it has improved since coming in. She states that she finished her stress test which was negative. She claims that she has been dealing with stressful situation at home including her who is involved in the "Q" online group and makes her watch videos about different conspiracy theories. She states that it is very stressful for her to watch these. She also claims that her son is 20 for 4 years old and was diagnosed with schizophrenia. She states that her daughter was recently diagnosed with multiple sclerosis and is 35. She states that able to live with her at home. She claims that she has had depression and anxiety for years. She states that she was on Effexor and had increased over the summer to 225 mg daily. She states that she is also taking Klonopin 0.5 mg twice a day. She states that she has a appointment at [facility] in April. She states that she has difficulties with sleep at times and sleeps "on and off". She claims that her appetite has been poor. At this time patient denies any current suicidal or homical ideations, intent or plan. Patient denies any auditory, visual hallucinations and denies any paranoia or delusions. Patients admits to using now recreational drugs PAST PSYCHIATRIC HISTORY: Patient has a a history of depression and anxiety. Patient is on Effexor, Klonopin. Patient denies any previous psychiatric hospitalizations. She claims that she will be following up with [facility] and has her appointment set in April however does not know who her provider's. Patient denies any history of suicide attempts in the past. PAST MEDICAL HISTORY:Diabetes Mellitus, Hyperlipidemia, Hypertension, Seizure Disorder ALLERGIES: as per EMR. CHEMICAL DEPENDENCY HISTORY: as per HPI. FAMILY PSYCHIATRIC/SUBSTANCE USE HISTORY: Son has schizophrenia SOCIAL HISTORY: Patient was born and raised in [facility]. She states that she spent a significant amount of time in [place] and then moved back to [place]. She claims that she currently lives with her and 2 kids and a house. She is unemployed. She did some college. She worked as a administrative clerk in the past. She denies any legal history. MENTAL STATUS EXAM: General Appearance: Patient appears to be obese, stated age is alert, pleasant, and cooperative. Patient appears to have fair hygiene and grooming wearing hospital gown with fair eye contact. Behavior: Patient is calmly lying in bed without any agitated behavior. Appears anxious. Hesitant at times. Speech: Patient's speech is fluent and nonpressured. Soft tone Mood/Affect: Patient reports their mood is "depressed", affect is congruent and anxious Suicidality/Homicidality: Patient denies having any suicidal or homicidal ideation intent or plan. Perceptions: Patient denies any visual hallucinations and denies any auditory hallucinations Though content/process: There is no evidence of any delusional thought content and thought process is linear and goal-directed. focused on her stressors. Memory and concentration: AOX3, grossly intact for the purposes of this session. Can spell "WORLD" backwards Judgment and insight: fair IMPRESSIONS: Major depressive disorder Generalized anxiety disorder PLAN: -At this time patient DOES NOT meet criteria for inpatient psychiatric admission. -Would recommend the following medication changes/additions: Resume Klonopin 0.5 mg twice a day when necessary for anxiety. Continue with Effexor 225 mg daily for mood/anxiety. Added on trazodone 50 mg daily at bedtime for insomnia/mood. Added lithium 150 mg twice a day for mood adjunct. -Patient has a appointment at [facility] in April with a provider and will be following up with them post discharge. -Agree with patient staying overnight to monitor new medication changes and if patient is getting benefit and not experiencing side effects. -Communicated plan to patient's nurse and [employer] -Will continue to follow along tomorrow. -Please contact with any questions.
[2021-03-22 18:45] LABS: Estimated Average Glucose UNC
[2021-03-22] MEDS ORDERED: traZODone HCL 50 MG TAB PO SCH (21:00)
[2021-03-23 03:49] LABS: Chol/HDL Ratio 2.61 Ratio; LDL Cholesterol,Calculated 67.3 mg/dL (0.0-131.0)
[2021-03-23] MEDS ORDERED: VENLAFAXINE HCL ER 75 MG CAP PO SCH (09:00)
[2021-03-23] MEDS ORDERED: ASPIRIN 81 MG PO SCH (09:00)
--- NOTE | 2021-03-25 09:00 | ECHOS ---
STRESS ECHOCARDIOGRAM INDICATIONS: Chest pain BASELINE HEART RATE: 70 BASELINE BLOOD PRESSURE: 144\35 MAXIMUM HEART RATE: 151 MAXIMUM BLOOD PRESSURE: 244/63 85% MPHR: 139 100% MPHR: 164 METS: NA MAXIMUM STAGE REACHED: TOTAL EXERCISE TIME: 10:36 CLINICAL INFORMATION: Baseline EKG revealed normal sinus rhythm with precordial ST and T-wave abnormality of a nonspecific type. With dobutamine administration, the heart rate went up from 70 to 151 beats per minute and the blood pressure changed from 140/35 to 240/63 and came back to baseline. Patient's EKG remained inconclusive. There was no significant arrhythmia. The precordial T-wave inversions almost normalized as the heart rate went up. However, patient did not have angina. By EKG criteria, this is a technically inconclusive stress test because of resting EKG changes. Baseline echo images revealed normal wall motion and wall thickening of all segments. The quality of images was somewhat suboptimal. Echo contrast was therefore administered to optimize the quality of images. With the dobutamine administration, there was a progressive increase in contractility noted involving all segments, suggesting that there is no evidence of any stress- induced ischemia on this study. FINAL IMPRESSION: 1. By EKG criteria, this is an inconclusive dobutamine stress test because of resting EKG changes. 2. Normal dobutamine stress echocardiogram with progressive increase in contractility with dobutamine administration. There is no evidence to suggest ischemia. MMODL / IJN: [id number] /
== END 2021-03-22 15:45 | disposition home or self-care (01) ==
LOC: EC 16:38 → 6NMEDSUR 18:17
PROVIDERS: ADMIT Internal Medicine; ATTEND Internal Medicine
DX: R07.89 Other chest pain (principal); R94.31 Abnormal electrocardiogram [ECG] [EKG]; E11.9 Type 2 diabetes mellitus without complications; I10 Essential (primary) hypertension; E78.5 Hyperlipidemia, unspecified; G40.909 Epilepsy, unspecified, not intractable, without status epilepticus; R11.0 Nausea; R61 Generalized hyperhidrosis; R06.09 Other forms of dyspnea; F32.9 Major depressive disorder, single episode, unspecified; F41.1 Generalized anxiety disorder; R06.02 Shortness of breath; R42 Dizziness and giddiness; E66.01 Morbid (severe) obesity due to excess calories; Z68.43 Body mass index [BMI] 50.0-59.9, adult; Z20.822 Contact with and (suspected) exposure to COVID-19; Z79.84 Long term (current) use of oral hypoglycemic drugs; Z79.891 Long term (current) use of opiate analgesic; Z79.899 Other long term (current) drug therapy; Z90.710 Acquired absence of both cervix and uterus; Z90.49 Acquired absence of other specified parts of digestive tract; Z98.890 Other specified postprocedural states; Z82.0 Family history of epilepsy and other diseases of the nervous system; Z83.3 Family history of diabetes mellitus; Z82.49 Family history of ischemic heart disease and other diseases of the circulatory system; Z83.49 Family history of other endocrine, nutritional and metabolic diseases; Z81.8 Family history of other mental and behavioral disorders; Z82.69 Family history of other diseases of the musculoskeletal system and connective tissue; Z56.0 Unemployment, unspecified; G47.00 Insomnia, unspecified; Z71.3 Dietary counseling and surveillance
CPT/HCPCS: 96374; 99285; 36415; 93005; 93306; 80061; 80048; 84484; 85025 ×2; 85610 ×2; 85730 ×2; 87635; G0378 ×2; C8930; J1250; J1644 ×2; Q9950; 83036; 93351

== ENCOUNTER → 2021-04-18 | Day surgery (SDC) | payer MEDICARE, OTHER ==
[2021-04-16 12:47] VITALS: BMI 52.3
[~2021-04-18] MED LIST: ALPRAZolam 0.25 MG TAB PO PRN; ALPRAZolam 0.5 MG TAB PO PRN; ASPIRIN 325 MG TAB PO STA; ATORVASTATIN 80 MG TAB PO STA; HEPARIN SODIUM,PORCINE 10,000 UNIT in SODIUM CHLORIDE 0.9% 1,000 ML IRRIGATION PRN; HEPARIN SODIUM,PORCINE 2,500 UNIT in SODIUM CHLORIDE 0.9% 250 ML IRRIGATION PRN; INSULIN ASPART (NovoLOG) 100 UNIT/ML VIAL SQ ONE; NITROGLYCERIN SL TABS 0.4 MG TAB SUBLINGUAL PRN; SODIUM CHLORIDE 0.9% 1,000 ML in EMPTY BAG 1 BAG IV SCH
[2021-04-18 11:29] LABS: Glucose,Whole Blood 221 mg/dL (75-99)
[2021-04-18 11:46] VITALS: BP 135/71; PULSE 84; RESP 18; TEMP 98.6
== END ==
LOC: CATHCVL 10:44
PROVIDERS: ATTEND Internal Medicine Interventional Cardiology
DX: R07.9 Chest pain, unspecified (principal); E78.5 Hyperlipidemia, unspecified; Z53.9 Procedure and treatment not carried out, unspecified reason; I25.10 Atherosclerotic heart disease of native coronary artery without angina pectoris; Z20.822 Contact with and (suspected) exposure to COVID-19; E66.01 Morbid (severe) obesity due to excess calories; Z68.43 Body mass index [BMI] 50.0-59.9, adult; E11.8 Type 2 diabetes mellitus with unspecified complications; G89.29 Other chronic pain; M54.9 Dorsalgia, unspecified; Z96.82 Presence of neurostimulator; Z82.49 Family history of ischemic heart disease and other diseases of the circulatory system; Z79.84 Long term (current) use of oral hypoglycemic drugs; Z79.82 Long term (current) use of aspirin; Z79.891 Long term (current) use of opiate analgesic; Z79.899 Other long term (current) drug therapy
CPT/HCPCS: 87635

== ENCOUNTER 2021-04-19 06:10 | Day surgery (SDC) | payer MEDICARE, OTHER ==
[2021-04-19] MEDS ORDERED: ALPRAZolam 0.25 MG TAB PO PRN (06:35)
[2021-04-19] MEDS ORDERED: ASPIRIN 325 MG TAB PO STA (06:35)
[2021-04-19] MEDS ORDERED: ALPRAZolam 0.5 MG TAB PO PRN (06:35)
[2021-04-19] MEDS ORDERED: NITROGLYCERIN SL TABS 0.4 MG TAB SUBLINGUAL PRN (06:35)
[2021-04-19] MEDS ORDERED: SODIUM CHLORIDE 0.9% 1,000 ML in EMPTY BAG 1 BAG IV SCH (06:35)
[2021-04-19 06:57] LABS: Glucose,Whole Blood 238 mg/dL (75-99)
[2021-04-19] MEDS ORDERED: INSULIN ASPART (NovoLOG) 100 UNIT/ML VIAL SQ ONE (07:03)
[2021-04-19] MEDS ORDERED: VERAPAMIL 2.5 MG/ML 2 ML AMP ONE (07:15)
[2021-04-19] MEDS ORDERED: LIDOCAINE 1% INJ 10MG/ML (20 ML MDV) ONE (07:15)
[2021-04-19] MEDS ORDERED: HEPARIN SODIUM 1,000 UN/ML (10ML VL) ONE (07:15)
[2021-04-19 07:18] VITALS: RESP 16; TEMP 98.7
[2021-04-19 07:40] LABS: African American GFR (CKD) >90 (>60 ml/min/1.73 sqM); Anion Gap 7 mmol/L; Blood Urea Nitrogen 14 mg/dL (7-17); Calcium 8.9 mg/dL (8.4-10.2); Carbon Dioxide 25 mmol/L (22-30); Chloride 107 mmol/L (98-107); Glucose 248 mg/dL (74-99); Non-African American GFR(CKD) >90 (>60 ml/min/1.73 sqM); Sodium 139 mmol/L (137-145)
[2021-04-19] MEDS ORDERED: MIDAZOLAM 2 MG/2 ML VIAL IV ONE (07:45)
[2021-04-19] MEDS ORDERED: fentaNYL (PF) 50 MCG/ML 2 ML AMP ONE (07:49)
[2021-04-19] MEDS ORDERED: LIDOCAINE 1% INJ 10MG/ML (20 ML MDV) SQ ONE (07:49)
[2021-04-19] MEDS: VERAPAMIL SYRINGE (5 MG/10 ML) INTRAARTER ONE ×2 (07:50→08:00)
[2021-04-19] MEDS ORDERED: HEPARIN SODIUM 1,000 UN/ML (10ML VL) IV ONE (07:52)
[2021-04-19] MEDS ORDERED: SODIUM CHLORIDE 0.9% 1,000 ML IV SCH (08:00)
[2021-04-19] MEDS ORDERED: IOPAMIDOL-370 100ML BTL INJ ONE (08:00)
[2021-04-19] MEDS ORDERED: glipiZIDE 5 MG TAB PO STA (09:22)
--- NOTE | 2021-04-19 11:03 | CC ---
CARDIAC CATHETERIZATION REPORT DATE OF SERVICE: 04/19/2021. PROCEDURE: Left heart catheterization and coronary angiography. PERFORMED BY: Dr. Raymon Hodges. Moderate conscious sedation time was 13 minutes. Patient was administered Versed. Oxygen saturation, hemodynamics and EKG were monitored closely. CLINICAL INFORMATION: Mrs. Elisa Small is a 55-year-old lady with history of diabetes, hypertension, hyperlipidemia, chronic back pain, who has a stimulator. She has been having symptoms of chest discomfort. She had a negative dobutamine stress echo but continues to have chest pressure with mild activity suggestive of angina. Therefore she was advised cardiac cath after due discussion regarding risks, benefits and options. PROCEDURE NOTE: Under local anesthesia and strict aseptic precautions, a 6-Jordanian introducer was placed in the right radial artery. Using a JL3.5 and JR4 catheters I performed coronary angiography, and the same right catheter was used to check LV pressure, but LV gram was not performed. The sheath was taken out and TR band applied as per protocol. The patient's oxygen saturation following the TR band application was 95%. She tolerated procedure well without complications. CARDIAC CATHETERIZATION FINDINGS: The left ventricular end-diastolic pressure was about 10 mmHg without any gradient across the aortic valve. CORONARY ANGIOGRAPHY FINDINGS: RIGHT CORONARY ARTERY: Large dominant vessel. No significant disease. Distally gives off a large PDA and supplies a sizable amount of myocardium. No significant disease in the dominant RCA. LEFT MAIN CORONARY ARTERY: Long vessel, free of significant disease. Bifurcates into LAD and circumflex. LEFT ANTERIOR DESCENDING CORONARY ARTERY: Good-caliber vessel extends along the anterior wall, gives off several diagonal and septal branches, runs towards the apex. No significant disease. LEFT POSTERIOR CIRCUMFLEX CORONARY ARTERY: Nondominant vessel gives off a single obtuse marginal and then runs in the AV groove, has minor irregularities. No significant disease. FINAL IMPRESSION: This patient has a right-dominant system, normal filling pressures. No significant obstructive CAD. RECOMMENDATIONS: Findings were discussed with the patient and her . She will be discharged later on today. Continued medical therapy with risk factor modification is advised. She has an appointment to see me next Thursday. Discharge instructions regarding activity, diet and medications were given. MMODL / IJN: [id number] /
[2021-04-19 14:25] VITALS: BP 114/66; PULSE 62
== END 2021-04-19 14:00 | disposition home or self-care (01) ==
LOC: CATHCVL 06:10
PROVIDERS: ATTEND Internal Medicine Interventional Cardiology
DX: R07.9 Chest pain, unspecified (principal); I20.0 Unstable angina; I10 Essential (primary) hypertension; E78.00 Pure hypercholesterolemia, unspecified; E78.2 Mixed hyperlipidemia; E11.9 Type 2 diabetes mellitus without complications; G89.29 Other chronic pain; M54.9 Dorsalgia, unspecified; E66.01 Morbid (severe) obesity due to excess calories; Z68.43 Body mass index [BMI] 50.0-59.9, adult; Z82.49 Family history of ischemic heart disease and other diseases of the circulatory system; Z79.82 Long term (current) use of aspirin; Z79.899 Other long term (current) drug therapy
CPT/HCPCS: 93458; 80048; C1894; J2250; J2001; J1644; Q9967

== ENCOUNTER → 2021-11-01 | Outpatient (CLI) | payer MEDICARE, OTHER ==
--- NOTE | 2021-11-01 15:47 | XR ---
EXAM TYPE: LUMBAR SPINE X RAY SERIES COMPARISON: 04/04/2020 HISTORY: Pain TECHNIQUE: 3 views are submitted. FINDINGS: Alignment is anatomic. The pedicles are intact. The transverse processes are intact. There is no spondylolisthesis. Stimulator device and wires noted. There is degenerative disc disease with facet arthropathy L3-4, L4-5 and L5-S1. Slight curvature of the spine and mild diffuse osteopenia. IMPRESSION: 1. Multilevel degenerative disc disease.
--- NOTE | 2021-11-01 15:48 | XR ---
EXAMINATION TYPE: XR thoracic spine complete DATE OF EXAM: 11/01/2021 COMPARISON: NONE HISTORY: Pain TECHNIQUE: 3 views submitted FINDINGS: Alignment is anatomic. There is no compression deformities. Hypertrophic and degenerative change of the spine. Stimulator leads are seen overlying the spinal canal on the lateral view. Exact location w ould be difficult to determine by x-ray and could be confirmed with CT scan. Tip of the lead appears to terminate near the T7-T8 level. IMPRESSION: 1. Multilevel moderate degenerative disc disease. 2. Stimulator leads appear posterior to the vertebral column likely within the spinal canal correlate clinically.
== END | disposition home or self-care (01) ==
LOC: RADXRMAIN 15:02
PROVIDERS: ATTEND Psychiatry & Neurology Pain Medicine
DX: T85.122D Displacement of implanted electronic neurostimulator of spinal cord electrode (lead), subsequent encounter (principal); X58.XXXD Exposure to other specified factors, subsequent encounter
CPT/HCPCS: 72072; 72100

== ENCOUNTER 2023-06-26 15:13 | Emergency (ER) | payer MEDICARE, OTHER ==
--- NOTE | 2023-06-26 15:17 | ED ---
URI HPI - General Source: patient, RN notes reviewed Mode of arrival: ambulatory Limitations: no limitations - History of Present Illness Complaint: cough, nasal congestion <Sandra Velasquez - Last Filed: 06/26/23 15:15> - General Source: patient, RN notes reviewed Mode of arrival: ambulatory Limitations: no limitations - History of Present Illness MD Complaint: cough, nasal congestion <Vickie Emanuel - Last Filed: 06/26/23 18:07> - General Chief Complaint: Upper Respiratory Infection Stated Complaint: Chest Pain,Sob,Cough-Sent by Time Seen by Provider: 06/26/23 15:15 - History of Present Illness Initial Comments: Quick Note: This is a 57-year-old female who presents to the emergency department for coughing and congestion. Symptoms started a week ago. She has minor chest pain that she attributes to all of the coughing. Also reports minor shortness of breath. She has been on steroids, antibiotics, codeine cough medication, and an inhaler without any relief in symptoms. Her PCP advised she come to the emergency department for further evaluation. (Sandra Velasquez) This is a 57-year-old female with a history of asthma who presents emergency department chief complaint of cough, congestion, and wheezing over the past 2 weeks. Patient states that she went to her primary care provider on Thursday she was discharged home with oral steroids and an antibiotic. Patient states that her symptoms have not been improving since. She also endorses anorexia, fevers. She denies abdominal pain, nausea, vomiting, headaches. (Vickie Emanuel) - Related Data Home Medications Medication Instructions Recorded Confirmed Albuterol Inhaler [Ventolin Hfa 2 puff INHALATION RT-QID PRN 03/21/21 04/19/21 Inhaler] Dapagliflozin Propanediol [Farxiga] 5 mg PO DAILY 03/21/21 04/19/21 Gabapentin 300 mg PO BID 03/21/21 04/19/21 HYDROcodone/APAP 10-325MG [[place] 1 tab PO BID 03/21/21 04/19/21 10-325] Losartan Potassium 50 mg PO DAILY 03/21/21 04/19/21 Lovastatin [Mevacor] 10 mg PO DAILY 03/21/21 04/19/21 Morphine Sulfate ER [Ms Contin] 30 mg PO BID 03/21/21 04/19/21 Naloxegol Oxalate [Movantik] 25 mg PO DAILY 03/21/21 04/19/21 Omeprazole 20 mg PO BID 03/21/21 04/19/21 Oxybutynin Chloride [oxyBUTYnin 10 mg PO BID 03/21/21 04/19/21 chloride ER] Venlafaxine HCl ER [Effexor XR] 75 mg PO DAILY 03/21/21 04/19/21 Venlafaxine HCl ER [Effexor XR] 150 mg PO DAILY 03/21/21 04/19/21 clonazePAM [KlonoPIN] 0.5 mg PO BID 03/21/21 04/19/21 glipiZIDE [Glucotrol] 5 mg PO DAILY 03/21/21 04/19/21 metFORMIN HCL [Glucophage] 1,000 mg PO BID 03/21/21 04/19/21 Aspirin 81 mg PO DAILY 04/16/21 04/19/21 Metoprolol Tartrate [Lopressor] 25 mg PO QAM 04/16/21 04/19/21 Ondansetron [Zofran] 4 mg PO Q6H PRN 04/16/21 04/19/21 Previous Rx's Medication Instructions Recorded Benzonatate [Tessalon Perles] 100 mg PO TID PRN #20 capsule 06/26/23 Fexofenadine/Pseudoephedrine 1 tab PO DAILY #7 tab 06/26/23 [Nancy-D 24 Hour Tablet] Fluticasone Nasal Robbins [Flonase 2 spray EA NOSTRIL DAILY #16 gm 06/26/23 Nasal Robbins] Allergies Allergy/AdvReac Type Severity Reaction Status Date / Time No Known Allergies Allergy Verified 06/26/23 18:04 Review of Systems ROS Other: All systems not noted in ROS Statement are negative. <Sandra Velasquez - Last Filed: 06/26/23 15:15> ROS Other: All systems not noted in ROS Statement are negative. <Vickie Emanuel - Last Filed: 06/26/23 18:07> ROS Statement: Those systems with pertinent positive or pertinent negative responses have been documented in the HPI. Past Medical History Past Medical History: Asthma, Chest Pain / Angina, Diabetes Mellitus, Hyperlipidemia, Hypertension, Seizure Disorder Additional Past Medical History / Comment(s): last seizure 2-1-22, recent adm. for chest pain, still having intermittently, some SOB w/exertion @times History of Any Multi-Drug Resistant Organisms: None Reported Past Surgical History: Appendectomy, Back Surgery, Hysterectomy Additional Past Surgical History / Comment(s): spinal stimulator implant left side of back. bulging discs with 2 previous back sx. Past Anesthesia/Blood Transfusion Reactions: No Reported Reaction Smoking Status: Never smoker - Past Family History Father Additional Family Medical History / Comment(s): alzheimers Mother Family Medical History: Unable to Obtain Brother(s) Family Medical History: Diabetes Mellitus Additional Family Medical History / Comment(s): maker [place] Sister(s) Family Medical History: Thyroid Disorder <Sandra Velasquez - Last Filed: 06/26/23 15:15> General Exam <Sandra Velasquez - Last Filed: 06/26/23 15:15> - General Exam Comments Initial Comments: Visual Physical Exam Vital signs reviewed General: Well-appearing, nontoxic, no acute distress. Head: Normocephalic, atraumatic Eyes: PERRLA, EOMI ENT: Airway patent Chest: Nonlabored breathing Skin: No visual rash, normal skin tone Neuro: Alert and oriented 3 Musculoskeletal: No gross abnormalities (Sandra Velasquez) Course Vital Signs 06/26/23 06/26/23 06/26/23 15:24 17:37 17:45 Pulse Rate 70 86 90 Respiratory 16 Rate Blood Pressure 113/75 O2 Sat by Pulse 94 L Oximetry Medical Decision Making <Sandra Velasquez - Last Filed: 06/26/23 15:15> <Vickie Emanuel - Last Filed: 06/26/23 18:07> - Medical Decision Making I performed the QuickNote portion of this chart. Signed Sandra Velasquez PA-C. (Sandra Velasquez) Was pt. sent in by a medical professional or institution ([facility], AUTHORIZER, urgent care, hospital, or custodial...) When possible be specific @ -No Did you speak to anyone other than the patient for history (EMS, parent, family, police, friend...)? What history was obtained from this source @ -No Did you review nursing and triage notes (agree or disagree)? Why? @ -I reviewed and agree with nursing and triage notes Were old charts reviewed (outside hosp., previous admission, EMS record, old EKG, old radiological studies, urgent care reports/EKG's, custodial records)? Report findings @ -No old charts were reviewed Differential Diagnosis (chest pain, altered mental status, abdominal pain women, abdominal pain men, vaginal bleeding, weakness, fever, dyspnea, syncope, headache, dizziness, GI bleed, back pain, seizure, CVA, palpatations, mental health, musculoskeletal)? @ -COVID 19, RSV, influenza, pneumonia, acute bronchitis, URI, this list is not all inclusive EKG interpreted by me (3pts min.). @ -None X-rays interpreted by me (1pt min.). @ -Chest x-ray no acute cardiopulmonary process CT interpreted by me (1pt min.). @ -None done U/S interpreted by me (1pt. min.). @ -None done What testing was considered but not performed or refused? (CT, X-rays, U/S, labs)? Why? @ -None What meds were considered but not given or refused? Why? @ -None Did you discuss the management of the patient with other professionals (professionals i.e. , PA, AUTHORIZER, lab, RT, psych nurse, social services assistant, dining chair seat cushion trimmer, teacher, communications officer, director case management)? Give summary @ -No Was smoking cessation discussed for >3mins.? @ -No Was critical care preformed (if so, how long)? @ -No Were there social determinants of health that impacted care today? How? (Homelessness, low income, unemployed, alcoholism, drug addiction, transportation, low edu. Level, literacy, decrease access to med. care, group home, rehab)? @ -No Was there de-escalation of care discussed even if they declined (Discuss DNR or withdrawal of care, Hospice)? DNR status @ -No What co-morbidities impacted this encounter? (DM, HTN, Smoking, COPD, CAD, Cancer, CVA, ARF, Chemo, Hep., AIDS, mental health diagnosis, sleep apnea, morbid obesity)? @ -None Was patient admitted / discharged? Hospital course, mention meds given and route, prescriptions, significant lab abnormalities, going to OR and other pertinent info. @ -57-year-old female chief complaint of cough, congestion. On examination patient noted to have mild scattered wheezes bilaterally. Anterior cervical lymphadenopathy and tonsillar lymphadenopathy. Oropharynx unremarkable for signs of tonsillar enlargement, abscess, petechiae or swelling. Chest x-ray nonconcerning for pneumonia or acute process. Additionally patient negative for COVID, flu, RSV. Patient given shot of Decadron and a DuoNeb breathing treatment. Patient states that her symptoms are mildly improved after breathing treatment. Patient states that she still has the steroid prescription from her PCP that she completes tomorrow. Recommend that patient continues course of medications prescribed her primary care provider. She will be sent home with Bety Marques and Allegra-D. Discussion with patient strict return parameters. Recommend that she use warm unified air at night and increase oral fluid intake. Recommend follow-up with primary care provider next week for further evaluation. Patient is in agreement with this. Discussed with Dr. Dominguez Undiagnosed new problem with uncertain prognosis? @ -No Drug Therapy requiring intensive monitoring for toxicity (Heparin, Nitro, Insulin, Cardizem)? @ -No Were any procedures done? @ -No Diagnosis/symptom? @ -Dry cough, congestion, rhinorrhea, viral syndrome Acute, or Chronic, or Acute on Chronic? @ -Acute Uncomplicated (without systemic symptoms) or Complicated (systemic symptoms)? @ -uncomplicated Side effects of treatment? @ -No Exacerbation, Progression, or Severe Exacerbation? @ -No Poses a threat to life or bodily function? How? (Chest pain, [place], [place], pneumonia, PE, COPD, DKA, ARF, appy, cholecystitis, CVA, Diverticulitis, Homicidal, Suicidal, threat to staff... and all critical care pts) @ -No (Vickie Emanuel) - Lab Data Lab Results 06/26/23 Range/Units 15:34 Influenza Type A (PCR) Not Detected (Not Detectd) Influenza Type B (PCR) Not Detected (Not Detectd) RSV (PCR) Not Detected (Not Detectd) SARS-CoV-2 (PCR) Not Detected (Not Detectd) Disposition <Sandra Velasquez - Last Filed: 06/26/23 15:15> Is patient prescribed a controlled substance at d/c from ED?: No Time of Disposition: 18:02 <Vickie Emanuel - Last Filed: 06/26/23 18:07> Clinical Impression: Post-nasal drip, Cough, Viral syndrome Narrative: Please return to the Emergency Department if symptoms worsen or any other concerns. Use Tessalon Perles and Nancy as needed. Use Flonase as directed for the next 14 days. Follow-up with your primary care provider next week for further evaluation. (Vickie Emanuel) Disposition: HOME SELF-CARE Condition: Good Instructions (If sedation given, give patient instructions): Viral Syndrome (ED) Prescriptions: Fexofenadine/Pseudoephedrine [Nancy-D 24 Hour Tablet] 1 tab PO DAILY #7 tab Fluticasone Nasal Robbins [Flonase Nasal Robbins] 2 spray EA NOSTRIL DAILY #16 gm Benzonatate [Tessalon Perles] 100 mg PO TID PRN #20 capsule PRN Reason: Cough Referrals: William Rogers MD [Primary Care Provider] - 1-2 days
[2023-06-26 15:42] VITALS: RESP 16
--- NOTE | 2023-06-26 16:29 | XR ---
EXAMINATION TYPE: XR chest 2V DATE OF EXAM: 06/26/2023 COMPARISON: NONE HISTORY: Cough TECHNIQUE: Frontal and lateral views of the chest are obtained. FINDINGS: There is mild cardiomegaly but no pulmonary vascular congestion There is no airspace consolidation or abnormal interstitial opacity. There is no pleural effusion or pneumothorax. The osseous structures are intact. There is a TENS unit projecting over the mid to lower thoracic spine. IMPRESSION: Mild cardiomegaly but no acute cardiopulmonary disease. IMPRESSION: No acute cardiopulmonary process.
[2023-06-26] MEDS: DEXAMETHASONE SOD PHOSPHATE 4 MG/ML 1 ML VIAL IM STA (16:52)
[2023-06-26] MEDS: IPRATROPIUM-ALBUTEROL 3 ML NEB INHALATION STA (17:36)
[2023-06-26 19:00] VITALS: BP 121/76; PULSE 84
== END 2023-06-26 18:36 | disposition home or self-care (01) ==
LOC: EC 15:13
DX: B34.9 Viral infection, unspecified (principal)
CPT/HCPCS: 94640; 87636; 71046; 99285; 96372; J1100